=== PATIENT | female | born 1990 | race Caucasian/White ===

== ENCOUNTER 2023-07-23 17:15 | Emergency (ER) | payer BC ==
[~2023-07-23] VITALS: Ht 167.6 cm; Wt 74.8 kg
[2023-07-23 17:50] VITALS: BP 108/59; PULSE 77; RESP 18; TEMP 97.8; O2SAT 98
[2023-07-23] MEDS ORDERED: KETOROLAC 30 MG/ML VIAL IM ONE (19:05)
[2023-07-23] MEDS ORDERED: DICL100G5 TP (19:42)
[2023-07-23] MEDS ORDERED: METH1ADH TP (19:42)
[2023-07-23 19:47] VITALS: BP 108/59; PULSE 77; RESP 18; TEMP 97.8; O2SAT 98
== END 2023-07-23 19:49 | disposition home or self-care (01) ==
LOC: MED 17:15
DX: M54.6 Pain in thoracic spine (principal); M41.34 Thoracogenic scoliosis, thoracic region; Z79.899 Other long term (current) drug therapy
CPT/HCPCS: 72072; 81025; 96372; 99283; J1885